=== PATIENT | male | born 1935 | race Caucasian/White ===

== ENCOUNTER 2017-03-30 06:53 | Inpatient (IN) | payer OTHER ==
[~2017-03-30 06:53] MED LIST: ACETAMINOPHEN 325 MG TAB PO ONE; DEXAMETHASONE 4 MG/ML VIAL IVP ONE; FAMOTIDINE 20 MG TAB PO ONE; ROPIVACAINE 0.2% 80 MG, EPINEPHrine 0.2 MG in BAG 0 ML IU ONE; TRANEXAMIC ACID 3,000 MG in NS 50 ML IRR ONE; ceFAZolin 2 GM/DEXTROSE 100 ML IV ONE
--- NOTE | 2017-03-30 07:11 | PDHPUP ---
History & Physical Update H&P update statement: This history and physical update is based on an assessment of the patient which was completed after admission or registration (within 24 hours), but prior to the surgery/procedure. H&P update: H&P reviewed & patient examined, no change in patient's condition since H&P completed
[2017-03-30] MEDS ORDERED: LIDOCAINE 1% 2 ML INJ ID PRN (07:40)
[2017-03-30] MEDS ORDERED: LR 1,000 ML IV ONE (07:40)
[2017-03-30] MEDS ORDERED: VANCOMYCIN 1 GM VIAL ONE (07:45)
[2017-03-30] MEDS ORDERED: TRANEXAMIC ACID 3,000 MG/50 ML BAG IRR ONE (07:45)
[2017-03-30] MEDS ORDERED: BUPIVACAINE 0.5% 30 ML SDV ONE (08:10)
--- NOTE | 2017-03-30 08:39 | PDANEPAE ---
ANE History of Present Illness 81 yo male for L TKA. ANE Past Medical History - Cardiovascular History Hx Hypertension: Yes Hx Arrhythmias: No Hx Chest Pain: No Hx Coronary Artery / Peripheral Vascular Disease: No Hx CHF / Valvular Disease: No Hx Palpitations: No - Pulmonary History Hx COPD: No Hx Asthma/Reactive Airway Disease: No Hx Recent Upper Respiratory Infection: No Hx Oxygen in Use at Home: No Hx Sleep Apnea: No Sleep Apnea Screening Result - Last Documented: Positive - Neurologic History Hx Cerebrovascular Accident: No Hx Seizures: No Hx Dementia: No - Endocrine History Hx Diabetes: No Obesity: no - Renal History Hx Renal Disorders: Yes Renal History Comment: BPH, congenital single R kidney. 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 RT ING HERNIA. TONSILLECTOMY ANE Review of Systems Review of Systems: No URI/fever x2 weeks. - Exercise capacity METS (RN): 5 METS - Systems Cardiac: Reports: no symptoms Respiratory: Reports: no symptoms ANE Patient History - Allergies Allergies/Adverse Reactions: No Known Allergies Allergy (Unverified 02/17/17 10:30) - Home Medications Home Medications: Lisinopril [Zestril 20 mg (*)] 20 mg PO HS 02/17/17 [Last Taken 03/28/17] Multivitamins [Multivitamin (*)] 1 each PO DAILY 02/17/17 [Last Taken 03/16/17] - NPO status NPO Since - Liquids (Date): 03/29/17 NPO Since - Liquids (Time): 22:00 NPO Since - Solids (Date): 03/29/17 NPO Since - Solids (Time): 17:00 - Smoking Hx Smoking Status: Never smoked ANE Labs/Vital Signs - Vital Signs Blood Pressure: 159/86 Heart Rate: 82 Respiratory Rate: 16 O2 Sat (%): 95 Height: 172.72 cm Weight: 72.575 kg ANE Physical Exam - Airway Neck exam: FROM Mallampati Score: Class 3 Mouth exam: normal dental/mouth exam - Pulmonary Pulmonary: clear to auscultation - Cardiovascular Cardiovascular: regular rate and rhythym - ASA Status ASA Status: II ANE Anesthesia Plan Anesthesia Plan: spinal Regional Anesthesia: adductor canal FNB
[2017-03-30] MEDS ORDERED: DEXAMETHASONE 4 MG/ML VIAL ONE (09:30)
[2017-03-30] MEDS ORDERED: PROPOFOL/EMULSION 500 MG/50 ML BOTTLE IV ONE (09:30)
[2017-03-30] MEDS ORDERED: fentaNYL 100 MCG/2 ML INJ ONE (09:30)
[2017-03-30] MEDS ORDERED: diphenhydrAMINE 25 MG CAP PO PRN (10:08)
[2017-03-30] MEDS ORDERED: CYCLOBENZAPRINE 10 MG TAB PO PRN (10:08)
[2017-03-30] MEDS ORDERED: POLYETHYLENE GLYCOL 3350 17 GM PKT PO PRN (10:08)
[2017-03-30] MEDS ORDERED: MAGNESIUM HYDROXIDE 30 ML UDCUP PO PRN (10:08)
[2017-03-30] MEDS ORDERED: TEMAZEPAM 15 MG CAP PO PRN (10:08)
[2017-03-30] MEDS ORDERED: PROMETHAZINE HCL 25 MG/ML INJ IVP PRN (10:08)
[2017-03-30] MEDS ORDERED: ONDANSETRON DISINTEGRATING 4 MG TAB PO PRN (10:08)
[2017-03-30] MEDS ORDERED: PROMETHAZINE HCL 25 MG SUPPR PR PRN (10:08)
[2017-03-30] MEDS ORDERED: METOCLOPRAMIDE 10 MG/2 ML VIAL IVP PRN (10:08)
[2017-03-30] MEDS ORDERED: LACTULOSE 20 GM/30 ML UDCUP PO PRN (10:08)
[2017-03-30] MEDS ORDERED: BISACODYL 10 MG SUPP PR PRN (10:08)
[2017-03-30] MEDS ORDERED: ONDANSETRON 4 MG/2 ML VIAL IVP PRN ×2 (10:08→10:41)
[2017-03-30] MEDS ORDERED: DIPHENOXYLATE/ATROPINE LOMOTIL 1 TAB PO PRN (10:08)
[2017-03-30] MEDS ORDERED: LR 1,000 ML IV SCH (10:30)
[2017-03-30] MEDS ORDERED: ALBUTEROL 3 ML DEYVIAL IH PRN (10:41)
[2017-03-30] MEDS ORDERED: NALOXONE HCL 0.4 MG/ML INJ IVP PRN (10:41)
[2017-03-30] MEDS ORDERED: OXYCODONE/APAP 5/325 TAB PO PRN (10:41)
[2017-03-30] MEDS ORDERED: fentaNYL 100 MCG/2 ML INJ IVP PRN (10:41)
--- NOTE | 2017-03-30 11:01 | POSTOPPROG ---
Post Op Note Date of Operation: 03/30/17 Surgeon: Keo Verma Dental Billing Specialist: alirio verma Anesthesiologist: dr. edmonds Anesthesia: Spinal, Other (Specify) (adductor canal block) Pre-op Diagnosis: left knee OA Post-op Diagnosis: same Indication: left knee pain due to OA that failed conservative measures Procedure: L TKA Findings: severe knee OA Inf/Abcess present in the surg proc area at time of surgery?: No EBL: 50-100
[2017-03-30] MEDS: oxyCODONE IR 5 MG TAB PO PRN ×2 (16:02→20:58)
[2017-03-30] MEDS: ACETAMINOPHEN 325 MG TAB PO SCH ×2 (16:12→17:48)
[2017-03-30] MEDS: ceFAZolin 2 GM/DEXTROSE 100 ML IV SCH (17:48)
[2017-03-30] MEDS: SENNOSIDES/DOCUSATE SODIUM TAB PO SCH (20:58)
[2017-03-30] MEDS: FAMOTIDINE 20 MG TAB PO SCH (20:58)
[2017-03-30] MEDS: ASPIRIN 325 MG TAB PO SCH (20:58)
[2017-03-30] MEDS ORDERED: LISINOPRIL 20 MG TAB PO SCH (21:00)
[2017-03-30 22:52] VITALS: RESP 14
[2017-03-31] MEDS: ACETAMINOPHEN 325 MG TAB PO SCH ×2 (00:23→05:45)
[2017-03-31] MEDS: ceFAZolin 2 GM/DEXTROSE 100 ML IV SCH (00:23)
[2017-03-31 04:25] VITALS: PULSE 70
[2017-03-31 05:20] LABS: HEMATOCRIT 34.2 % (40.0-51.0)
[2017-03-31 05:22] LABS: ANION GAP 5 mEq/L (8-16); CALCIUM 8.9 mg/dL (8.5-10.4); CARBON DIOXIDE 26 mEq/l (22-31); CHLORIDE 103 mEq/L (97-110); CREATININE 1.1 mg/dL (0.7-1.3); GLOMERULAR FILTRATION RATE > 60; GLUCOSE 105 mg/dL (70-100); POTASSIUM 4.2 mEq/L (3.5-5.2); SODIUM 134 mEq/L (134-144)
[2017-03-31] MEDS: oxyCODONE IR 5 MG TAB PO PRN ×2 (05:45→08:18)
[2017-03-31 07:31] VITALS: BP 111/65; TEMP 98.8; O2SAT 94
[2017-03-31] MEDS: SENNOSIDES/DOCUSATE SODIUM TAB PO SCH (08:17)
[2017-03-31] MEDS: ASPIRIN 325 MG TAB PO SCH (08:18)
[2017-03-31] MEDS: FAMOTIDINE 20 MG TAB PO SCH (08:18)
--- NOTE | 2017-03-31 10:28 | SOAPPROG ---
SOAP Progress Note Assessment/Plan: Assessment: Hudson is doing well POD 1 s/p L TKA 1) pain management: pain is well controlled on oral pain meds. 2) Anemia: level expected initially postop. asymptomatic. cont to monitor 3) VTE ppx: recommend ASA 325 mg once daily. cont MITZY hose and SCDs 4)D/c planning: d/c to home pending release from PT Plan: 03/31/17 10:27 Subjective: Hudson is doing well today, denies SOB, chest pain and N/v Objective: Vital Signs Temp Pulse Resp BP Pulse Ox 37.1 C 70 14 111/65 94 03/31/17 07:30 03/31/17 07:30 03/31/17 07:30 03/31/17 07:30 03/31/17 07:30 Laboratory Results 03/31/17 04:24 03/31/17 04:24 03/30/17 03/31/17 04/01/17 05:59 05:59 05:59 Intake Total 2781 Output Total 675 Balance 2106 LLE: incision dressing is clean and dry, NVI< +pf/df ICD10 Worksheet Patient Problems: Problems Problem Status Onset Primary localized osteoarthritis of left knee Acute
--- NOTE | 2017-03-31 10:35 | ASDISCHSUM ---
Discharge Information Plan Status:Home with No Needs Medically Cleared to Leave: Discharge Date:03/31/2017 10:25 AM CM D/C Disposition:Home, Routine, Self-Care ADT D/C Disposition:Home, Routine, Self-Care Projected Discharge Date:03/31/2017 10:25 AM Transportation at D/C: Discharge Delay Reason: Follow-Up Date:03/31/2017 10:25 AM Discharge Slot: Final Diagnosis: Placement Information Patient Contact Information Contact Name:SHIMA Relationship: Address:[facility] [address] [facility] City:[place] Alternate Phone: [facility]/Zip Code:[place] [address] Email: Financial Information Financial Class:Medicare Advantage Plans Primary Plan Desc:[facility] [employer] Primary Plan Number:[id number] Secondary Plan Desc: Secondary Plan Number: Assessment Information Intervention Information
--- NOTE | 2017-03-31 12:07 | GDS ---
[f rep st] DISCHARGE SUMMARY ADMISSION DIAGNOSIS: Left knee osteoarthritis. DISCHARGE DIAGNOSIS: Left knee osteoarthritis. PROCEDURE: Left total knee arthroplasty. VTE PROPHYLAXIS: Aspirin recommended 3 weeks daily. BRIEF DESCRIPTION OF HOSPITAL STAY: Patient was admitted for an elective joint arthroplasty. The pa tient tolerated the procedure well and has passed physical therapy. The patient was given appropriat e antibiotic prophylaxis and venous thromboembolism prophylaxis. The patient's pain was well control led on oral pain medication, patient was holding down food, and had urinated. Decision was made to d ischarge the patient. The patient was given post-operative prescriptions pre-operatively. PLAN: Please follow up as scheduled on April [address] Torres's office. /[id number]/MODL
--- NOTE | 2017-03-31 22:54 | GOP ---
[f rep st] OPERATIVE REPORT DATE OF OPERATION: 03/30/2017 SURGEON: Aquilino Torres MD GATE GUARD: Isela Torres PA-C ANESTHESIA: Spinal. PREOPERATIVE DIAGNOSIS: Left knee osteoarthritis. POSTOPERATIVE DIAGNOSIS: Left knee osteoarthritis. PROCEDURE PERFORMED: Total knee arthroplasty. FINDINGS: ESTIMATED BLOOD LOSS: 30 cc. INDICATIONS: This is a 81-year-old male with severe and progressive pain and deformity of the left k nee unresponsive to conservative care. Risks and benefits of the surgical intervention were explaine d in detail. DESCRIPTION OF PROCEDURE: The patient was brought to the operative room and placed on the table in t he supine position. Spinal anesthesia was induced without difficulty. A pneumatic tourniquet was ap plied about the left proximal thigh, and the leg was prepped and draped in a sterile fashion. The le g seay was applied. After exsanguination by elevation the tourniquet was inflated to 250 mm of nay cury. Incision was made anterior medial from the tibial tuberosity to a point 2 cm proximal to the superior pole of the patella. Medial parapatellar arthrotomy was carried out from the superior pole of the p atella and posteriorly in line with the fibers of the Type 2 VMO. The medial collateral ligament was elevated and the infrapatellar fat pad was resected. The patella was everted and the articular surface was excised. A 35 mm patellar button was placed. T he distal femoral guide hole was drilled and the 6-degree alignment brittany was placed. A 10 mm distal f emoral cut was made without difficulty. Attention was turned to the tibia and a standard 6 mm cut based on the medial tibial condyle was perf ormed. The tibial articular surface was excised without difficulty. Attention was turned back to the femur and a size 5 Triathlon femoral cutting block was positioned. Anterior, posterior, and chamfer cuts were made, followed by the intercondylar box cut. The knee was extended and the remnants of the medial and lateral meniscus were excised. The posterio r capsule was injected with ropivacaine, epinephrine and Toradol. A size 5 tibial tray was positione d. Trial reduction was then carried out. There was excellent range of motion, alignment, and stabil ity using the 9 mm polyethylene. All trials were then removed. The joint was thoroughly irrigated and carefully dried. Two packages of cement and 2 grams of vancomycin were mixed in the vacuum mixer and placed on the fixation surface s of all surfaces of the components. The components were implanted and all excess cement was thoroug hly removed. The permanent 9 mm polyethylene was placed without difficulty. The tourniquet was deflated and all bleeders were coagulated. The wound was thoroughly irrigated and closed using interrupted sutures of 2-0 Vicryl for the joint capsule. The subcu was closed with 3-0 Vicryl and the skin with 4-0 Monocryl. Dermabond and Steri-Strips were applied followed by a compre ssive dressing. The patient was then moved from the operating room to the recovery room in good cond ition, having tolerated the procedure well. PATHOLOGY: Severe lateral and patellofemoral osteoarthritis. /[id number]/MODL
== END 2017-03-31 10:25 | disposition home or self-care (01) | DRG 470 ==
LOC: F3N 06:53
PROVIDERS: ADMIT Orthopaedic Surgery; ATTEND Orthopaedic Surgery
PROC: 0SRD0J9 Replacement of Left Knee Joint with Synthetic Substitute, Cemented, Open Approach (ICD-10-PCS; principal; 2017-03-30 09:15)
DX: M17.12 Unilateral primary osteoarthritis, left knee (principal); I10 Essential (primary) hypertension; N40.1 Benign prostatic hyperplasia with lower urinary tract symptoms; R33.9 Retention of urine, unspecified; Q60.0 Renal agenesis, unilateral
CPT/HCPCS: 97116-GP; 97161-GP; 97165-GO; C1713; G8978-GP-CI; G8979-GP-CI; G8980-GP-CI; G8987-GO-CI; G8988-GO-CI; G8989-GO-CI; J0171; J0690; J1100; J2704; J2795; J3010; J3370